=== PATIENT | male | born 1940 | race Caucasian/White ===

== ENCOUNTER 2016-04-21 16:33 | Inpatient (IN) | payer MEDICARE, BC ==
[~2016-04-21] VITALS: Ht 180.3 cm; Wt 90.0 kg
[~2016-04-21 16:33] MED LIST: ALDACTONE 25MG25 M1; ALDACTONE 25MG25 MG PO; ALDACTONE25 MG PO; ALTACE 10MG TAB10 MG PO; ALTACE 5MG5 MG PO; ALTACE10 MG PO; ALTACE5 M1 PO; ASPIRIN 81M81 MG/TA2 PO; BYSTOLIC5 MG PO; CEPHALEXIN500 M1 PO; COMBIVENT INH14.7 GM IH; CORDARONE200 MG/TAB PO; COREG 6.256.25 MG/TA PO; COREG3.125 MG PO; COREG6.25 MG PO; DOXYCYCLINE 10100 MG PO; DULERA1 ARO IH; ELIQUIS 5MG PO; FORADIL AERO0.012 MG IH; HCTZ 25MG TAB25 MG PO; IPRATROPIUM BROM3 M1 IH; KLOR-CON 1010 MEQ PO; LASIX40 MG PO; LEVAQUIN 750MG750 M1 PO; LIPITOR 10MG10 MG PO; LIPITOR20 MG PO; MUCINEX 60600 MG/TA1 PO; NORCO 325 MG-51 TAB PO; PERFOROMIS20 MCG/2 M IH; PREDNISONE20 MG PO; PROVENTIL0.09 MG/A1 IH; PROVENTIL0.09 MG/Ac IH; PULMICORT R1 MG/2 ML IH; RT SPIRIVA18 MCG IH; SEPTRA DS 8001 TAB PO; SPIRIVA HANDIH18 MCG IH; SPIRIVA18 MCG IH; ST. JOSEPH81 M2 PO
[2016-04-21 17:10] LABS: BASO % 0.3 % (0.0-2.0); EOS % 0.5 % (0-4.0); GRAN # 4.9 (1.4-6.5); GRAN % 79.9 % (42.2-75.2); LYMPH # 0.7 (1.2-3.4); LYMPH % 11.4 % (20.0-51.0); MEAN CELL VOLUME 86 fl (80.0-100.0); MEAN CORPUSCULAR HGB CONC 31 g/dl (33.0-37.0); MEAN PLATELET VOLUME 8.9 fl (7.4-10.4); MONO # 0.4 (0.1-0.6); MONO % 7.2 % (1.7-9.3); PLATELET COUNT 232 K/mm3 (130-400); RED BLOOD COUNT 2.78 M/mm3 (4.20-5.60); REDCELL DISTRIBUTION WIDTH-CV 14.6 % (11.5-14.5); WHITE BLOOD COUNT 6.2 K/mm3 (4.8-10.8)
[2016-04-21 17:16] LABS: INR 1.5 (0.8-3.0); PROTHROMBIN TIME 17.2 SECONDS (9.7-12.8)
[2016-04-21 17:19] LABS: HEMATOCRIT 23.9 % (42.0-52.0); HEMOGLOBIN 7.4 g/dl (13.5-18.0); MEAN CORPUSCULAR HEMOGLOBIN 27 pg (27.0-31.0); PARTIAL THROMBOPLASTIN TIME 31.2 SECONDS (26.0-37.0)
[2016-04-21] MEDS ORDERED: LEVAQUIN 5500 MG/TA1 PO (17:21)
[2016-04-21 17:25] LABS: ADJUSTED CALCIUM 10.1 mg/dL (8.4-10.2); ALANINE AMINOTRANSFERASE 24 U/L (21-72); ALBUMIN 2.4 gm/dL (3.5-5.0); ALKALINE PHOSPHATASE 71 U/L (50-136); ANION GAP 11 mmol/L (7-16); BILIRUBIN,TOTAL 0.4 mg/dL (0.0-1.0); BLOOD UREA NITROGEN 15 mg/dL (9-20); CALCIUM 8.8 mg/dL (8.4-10.2); CARBON DIOXIDE 28 mmol/L (22-30); CHLORIDE 101 mmol/L (98-107); CREATININE, serum 1.27 mg/dL (0.66-1.25); GLUCOSE 121 mg/dL (74-106); SODIUM 139 mmol/L (137-145); TOTAL PROTEIN 5.7 gm/dL (6.4-8.2)
[2016-04-21 17:27] LABS: LIPASE < 10 U/L (23-300); POTASSIUM 2.8 mmol/L (3.4-5.0)
[2016-04-21 17:34] LABS: B-TYPE NATRIURETIC PEPTIDE 4630 pg/mL (0-450)
[2016-04-21 17:38] LABS: TROPONIN-I < 0.012 ng/mL (0.000-0.034)
[2016-04-21 17:53] LABS: MAGNESIUM 2.3 mg/dL (1.6-2.3)
[2016-04-21 18:11] LABS: C-REACTIVE PROTEIN 21.8 mg/dL (0.0-0.9)
[2016-04-21 19:52] VITALS: BP 102/52; PULSE 82; TEMP 97.8
[2016-04-21 22:48] VITALS: BP 105/53; PULSE 75; TEMP 97.7
[2016-04-21 23:00] VITALS: BP 99/50; PULSE 77; TEMP 97.7
[2016-04-21 23:28] VITALS: BP 99/42; PULSE 72; TEMP 97.6
[2016-04-21 23:50] VITALS: BP 113/63; PULSE 64; TEMP 97.6
[2016-04-22] VITALS (15 sets, daily range): BP systolic 72–106; BP diastolic 34–66; PULSE 79–106; TEMP 97.3–98.4
[2016-04-22 00:54] LABS: PH 5 (5-8); SQUAMOUS EPITHELIAL 0-2 /hpf; URINE APPEARANCE Clear; URINE BACTERIA None Seen /hpf; URINE BILIRUBIN Negative (NEGATIVE); URINE BLOOD Negative (NEGATIVE); URINE COLOR Yellow; URINE GLUCOSE Negative (NEGATIVE); URINE KETONE Negative (NEGATIVE); URINE RBC 0-2 /hpf; URINE UROBILINOGEN Negative (NEGATIVE); URINE WBC 0-2 /hpf
[2016-04-22 07:20] LABS: BASO % 0.1 % (0.0-2.0); EOS % 0.3 % (0-4.0); GRAN # 5.9 (1.4-6.5); GRAN % 81.7 % (42.2-75.2); LYMPH # 0.7 (1.2-3.4); LYMPH % 9.3 % (20.0-51.0); MEAN CELL VOLUME 86 fl (80.0-100.0); MEAN CORPUSCULAR HGB CONC 31 g/dl (33.0-37.0); MEAN PLATELET VOLUME 9.1 fl (7.4-10.4); MONO # 0.6 (0.1-0.6); MONO % 7.9 % (1.7-9.3); PLATELET COUNT 250 K/mm3 (130-400); RED BLOOD COUNT 2.98 M/mm3 (4.20-5.60); REDCELL DISTRIBUTION WIDTH-CV 14.9 % (11.5-14.5); WHITE BLOOD COUNT 7.2 K/mm3 (4.8-10.8)
[2016-04-22 07:24] LABS: HEMATOCRIT 25.5 % (42.0-52.0); HEMOGLOBIN 7.8 g/dl (13.5-18.0); MEAN CORPUSCULAR HEMOGLOBIN 26 pg (27.0-31.0)
[2016-04-22 07:27] LABS: CALCIUM 8.8 mg/dL (8.4-10.2); CREATININE, serum 1.12 mg/dL (0.66-1.25); POTASSIUM 3.2 mmol/L (3.4-5.0)
[2016-04-23] VITALS (14 sets, daily range): BP systolic 72–107; BP diastolic 31–87; PULSE 78–96; TEMP 97.7–99.2
[2016-04-23 06:43] LABS: INR 1.7 (0.8-3.0); PROTHROMBIN TIME 19.1 SECONDS (9.7-12.8)
[2016-04-23 06:50] LABS: CALCIUM 8.5 mg/dL (8.4-10.2); CREATININE, serum 1.24 mg/dL (0.66-1.25); MAGNESIUM 2.1 mg/dL (1.6-2.3); POTASSIUM 3.5 mmol/L (3.4-5.0)
[2016-04-23 07:01] LABS: TROPONIN-I 0.02 ng/mL (0.000-0.034)
[2016-04-23 07:09] LABS: HEMATOCRIT 23.3 % (42.0-52.0); HEMOGLOBIN 7.5 g/dl (13.5-18.0)
[2016-04-23 19:41] LABS: HEMATOCRIT 23.9 % (42.0-52.0); HEMOGLOBIN 7.8 g/dl (13.5-18.0)
[2016-04-24] VITALS (14 sets, daily range): BP systolic 82–123; BP diastolic 33–71; PULSE 70–100; TEMP 97.4–98.2
[2016-04-24 06:50] LABS: MEAN CELL VOLUME 87 fl (80.0-100.0); MEAN CORPUSCULAR HGB CONC 32 g/dl (33.0-37.0); MEAN PLATELET VOLUME 8.8 fl (7.4-10.4); PLATELET COUNT 180 K/mm3 (130-400); RED BLOOD COUNT 2.71 M/mm3 (4.20-5.60); WHITE BLOOD COUNT 5.9 K/mm3 (4.8-10.8)
[2016-04-24 06:56] LABS: INR 1.7 (0.8-3.0); PROTHROMBIN TIME 18.8 SECONDS (9.7-12.8)
[2016-04-24 06:58] LABS: HEMATOCRIT 23.5 % (42.0-52.0); HEMOGLOBIN 7.4 g/dl (13.5-18.0); MEAN CORPUSCULAR HEMOGLOBIN 27 pg (27.0-31.0)
[2016-04-24 06:59] LABS: ADD PATHOLOGY DIFF REVIEW NO
[2016-04-24 07:06] LABS: ADJUSTED CALCIUM 10.1 mg/dL (8.4-10.2); ALBUMIN 1.9 gm/dL (3.5-5.0); BILIRUBIN,TOTAL 0.6 mg/dL (0.0-1.0); CALCIUM 8.4 mg/dL (8.4-10.2); CREATININE, serum 1.16 mg/dL (0.66-1.25); POTASSIUM 3.2 mmol/L (3.4-5.0); TOTAL PROTEIN 4.7 gm/dL (6.4-8.2)
[2016-04-24 07:13] LABS: BAND 11 % (0-10); EOSINOPHIL 1 % (0-4); METAMYELOCYTE 1 % (0-0); MYELOCYTE 2 % (0-0); NEUTROPHILS 76 % (42.0-75.2); PLATELET ESTIMATE NORMAL (NORMAL); TOTAL CELLS COUNTED 100
[2016-04-25 00:02] VITALS: BP 102/51; PULSE 72; TEMP 97.5
[2016-04-25 04:23] VITALS: BP 108/43; PULSE 68; TEMP 97.7
[2016-04-25 07:39] VITALS: BP 115/51; PULSE 73; TEMP 97.7
[2016-04-25 08:26] LABS: MEAN CELL VOLUME 87 fl (80.0-100.0); MEAN CORPUSCULAR HGB CONC 32 g/dl (33.0-37.0); MEAN PLATELET VOLUME 9.1 fl (7.4-10.4); PLATELET COUNT 155 K/mm3 (130-400); RED BLOOD COUNT 2.76 M/mm3 (4.20-5.60); REDCELL DISTRIBUTION WIDTH-CV 15.1 % (11.5-14.5); WHITE BLOOD COUNT 5.3 K/mm3 (4.8-10.8)
[2016-04-25 08:27] LABS: ADD PATHOLOGY DIFF REVIEW NO; HEMOGLOBIN 7.6 g/dl (13.5-18.0); MEAN CORPUSCULAR HEMOGLOBIN 28 pg (27.0-31.0)
[2016-04-25 08:38] LABS: CALCIUM 8.2 mg/dL (8.4-10.2); CREATININE, serum 0.95 mg/dL (0.66-1.25); POTASSIUM 3.7 mmol/L (3.4-5.0)
[2016-04-25 11:15] LABS: BAND 5 % (0-10); EOSINOPHIL 1 % (0-4); NEUTROPHILS 85 % (42.0-75.2); TOTAL CELLS COUNTED 100
[2016-04-25 11:16] LABS: HYPOCHROMIA 1+
[2016-04-25 11:57] VITALS: BP 113/49; PULSE 72; TEMP 97.8
[2016-04-25 15:20] VITALS: BP 106/48; PULSE 74; TEMP 97.5
[2016-04-25 20:38] VITALS: BP 104/42; PULSE 77; TEMP 97
[2016-04-26] VITALS (7 sets, daily range): BP systolic 98–114; BP diastolic 45–54; PULSE 63–74; TEMP 97.5–98.1
[2016-04-26 07:52] LABS: BASO % 0.4 % (0.0-2.0); EOS # 0.1 (0.0-0.7); EOS % 2.6 % (0-4.0); GRAN % 73.5 % (42.2-75.2); LYMPH # 0.7 (1.2-3.4); LYMPH % 13.8 % (20.0-51.0); MEAN CELL VOLUME 88 fl (80.0-100.0); MEAN CORPUSCULAR HGB CONC 31 g/dl (33.0-37.0); MEAN PLATELET VOLUME 8.8 fl (7.4-10.4); MONO # 0.3 (0.1-0.6); PLATELET COUNT 160 K/mm3 (130-400); RED BLOOD COUNT 2.76 M/mm3 (4.20-5.60); REDCELL DISTRIBUTION WIDTH-CV 15.2 % (11.5-14.5); WHITE BLOOD COUNT 5.4 K/mm3 (4.8-10.8)
[2016-04-26 07:54] LABS: HEMATOCRIT 24.3 % (42.0-52.0); HEMOGLOBIN 7.6 g/dl (13.5-18.0); MEAN CORPUSCULAR HEMOGLOBIN 28 pg (27.0-31.0)
[2016-04-26 08:09] LABS: CALCIUM 8.2 mg/dL (8.4-10.2); CREATININE, serum 0.91 mg/dL (0.66-1.25); POTASSIUM 3.8 mmol/L (3.4-5.0)
[2016-04-27] VITALS (7 sets, daily range): BP systolic 97–112; BP diastolic 43–53; PULSE 67–81; TEMP 97.5–98.6
[2016-04-27 06:31] LABS: MEAN CELL VOLUME 88 fl (80.0-100.0); MEAN CORPUSCULAR HGB CONC 31 g/dl (33.0-37.0); PLATELET COUNT 150 K/mm3 (130-400); RED BLOOD COUNT 2.84 M/mm3 (4.20-5.60); WHITE BLOOD COUNT 5.1 K/mm3 (4.8-10.8)
[2016-04-27 06:37] LABS: HEMATOCRIT 25.1 % (42.0-52.0); HEMOGLOBIN 7.8 g/dl (13.5-18.0); MEAN CORPUSCULAR HEMOGLOBIN 27 pg (27.0-31.0)
[2016-04-27 06:38] LABS: ADD PATHOLOGY DIFF REVIEW NO
[2016-04-27 06:49] LABS: CALCIUM 8.1 mg/dL (8.4-10.2); CREATININE, serum 0.83 mg/dL (0.66-1.25); POTASSIUM 3.8 mmol/L (3.4-5.0)
[2016-04-27 07:28] LABS: BAND 8 % (0-10); EOSINOPHIL 1 % (0-4); HYPOCHROMIA 1+; METAMYELOCYTE 2 % (0-0); MYELOCYTE 1 % (0-0); NEUTROPHILS 67 % (42.0-75.2); PLATELET ESTIMATE NORMAL (NORMAL); TOTAL CELLS COUNTED 100
[2016-04-28 03:49] VITALS: BP 104/49; PULSE 79; TEMP 98.1
[2016-04-28 07:28] LABS: C-REACTIVE PROTEIN 6.6 mg/dL (0.0-0.9)
[2016-04-28 07:29] LABS: MEAN CELL VOLUME 88 fl (80.0-100.0); MEAN CORPUSCULAR HGB CONC 31 g/dl (33.0-37.0); MEAN PLATELET VOLUME 9.2 fl (7.4-10.4); PLATELET COUNT 145 K/mm3 (130-400); RED BLOOD COUNT 2.74 M/mm3 (4.20-5.60); REDCELL DISTRIBUTION WIDTH-CV 15.1 % (11.5-14.5); WHITE BLOOD COUNT 5.7 K/mm3 (4.8-10.8)
[2016-04-28 07:33] LABS: HEMOGLOBIN 7.5 g/dl (13.5-18.0); MEAN CORPUSCULAR HEMOGLOBIN 27 pg (27.0-31.0)
[2016-04-28 07:34] LABS: ADD PATHOLOGY DIFF REVIEW NO
[2016-04-28 07:52] VITALS: BP 130/57; PULSE 78; TEMP 97
[2016-04-28 08:06] LABS: BAND 7 % (0-10); EOSINOPHIL 2 % (0-4); HYPOCHROMIA 2+; MYELOCYTE 1 % (0-0); NEUTROPHILS 74 % (42.0-75.2); PLATELET ESTIMATE NORMAL (NORMAL); TOTAL CELLS COUNTED 100
[2016-04-28] MEDS ORDERED: PROTONIX 40MG T40 MG PO (09:49)
[2016-04-28] MEDS ORDERED: NORCO 325 MG-51 TAB PO (09:50)
[2016-04-28 12:24] VITALS: BP 104/58; PULSE 86; TEMP 97.4
[2016-04-28 16:35] VITALS: BP 99/77; PULSE 78; TEMP 98.5
[2016-04-28 20:03] VITALS: BP 104/47; PULSE 76; TEMP 98
[2016-04-29 00:15] VITALS: BP 121/63; PULSE 76; TEMP 98.2
[2016-04-29 04:13] VITALS: BP 123/66; PULSE 79; TEMP 97.5
[2016-04-29 08:42] VITALS: BP 114/54; PULSE 81; TEMP 98.1
[2016-04-29 11:32] VITALS: BP 122/59; PULSE 82; TEMP 98.2
== END 2016-04-29 16:15 | disposition home health service (06) | DRG 186 ==
LOC: COL.ER 16:33 → MEDICAL 19:08
PROVIDERS: Emergency Medicine; Internal Medicine; Internal Medicine Pulmonary Disease; Nurse Practitioner Family; Physician Assistant; Surgery
PROC: 0W9900Z Drainage of Right Pleural Cavity with Drainage Device, Open Approach (ICD-10-PCS; principal; 2016-04-23 09:30)
PROC: 0DB68ZX Excision of Stomach, Via Natural or Artificial Opening Endoscopic, Diagnostic (ICD-10-PCS; 2016-04-24)
DX: J90 Pleural effusion, not elsewhere classified (principal); J86.9 Pyothorax without fistula; K25.4 Chronic or unspecified gastric ulcer with hemorrhage; N17.9 Acute kidney failure, unspecified; E44.0 Moderate protein-calorie malnutrition; C34.31 Malignant neoplasm of lower lobe, right bronchus or lung; J98.11 Atelectasis; D62 Acute posthemorrhagic anemia; I50.32 Chronic diastolic (congestive) heart failure; E87.6 Hypokalemia; I11.0 Hypertensive heart disease with heart failure; J44.9 Chronic obstructive pulmonary disease, unspecified; Z87.891 Personal history of nicotine dependence; I48.0 Paroxysmal atrial fibrillation; Z79.01 Long term (current) use of anticoagulants
CPT/HCPCS: 99222-AI; 99232-AI; 99239; A7048; A9284; C1751; C9113; J1644; J1940; J1956; J2250; J2543; J2704; J3480; J7030; J7050; P9016; Q9967

== ENCOUNTER → 2016-05-18 | Outpatient (CLI) | payer MEDICARE, BC ==
[~2016-05-18] VITALS: Ht 180.3 cm; Wt 81.8 kg
[2016-05-18] VITALS (12 sets, daily range): BP systolic 123–172; BP diastolic 71–101; PULSE 75–101
[~2016-05-18] MED LIST changes: +ALDACTONE 25MG25 M1 PO; +BROVANA15 MCG/2 M IH; +COMPAZINE 110 MG/TAB PO; +DECADRON 4MG TAB4 MG PO; +FOLIC ACID 11 MG/TA1 PO; +LEVAQUIN 5500 MG/TA1 PO; +MULTI VITAMINS1 TAB PO; +PACERONE400 MG PO; +PROTONIX 40MG T40 MG PO; +VITAMIN D1000 IU PO
== END ==
LOC: COL.RAD 12:18
DX: M89.8X6 Other specified disorders of bone, lower leg (principal); C34.2 Malignant neoplasm of middle lobe, bronchus or lung
CPT/HCPCS: J2250; J3010

== ENCOUNTER 2016-05-22 12:56 | Outpatient (CLI) | payer MEDICARE, BC ==
[~2016-05-22] VITALS: Ht 180.3 cm; Wt 78.6 kg
[~2016-05-22 12:56] MED LIST changes: -ALDACTONE 25MG25 M1 PO; -BROVANA15 MCG/2 M IH; -COMPAZINE 110 MG/TAB PO; -DECADRON 4MG TAB4 MG PO; -FOLIC ACID 11 MG/TA1 PO; -MULTI VITAMINS1 TAB PO; -PACERONE400 MG PO; -VITAMIN D1000 IU PO
[2016-05-22 13:39] VITALS: BP 113/67; PULSE 92; TEMP 98.6
[2016-05-22 14:11] LABS: MEAN CELL VOLUME 84 fl (80.0-100.0); MEAN CORPUSCULAR HGB CONC 31 g/dl (33.0-37.0); MEAN PLATELET VOLUME 8.9 fl (7.4-10.4); PLATELET COUNT 297 K/mm3 (130-400); RED BLOOD COUNT 3.34 M/mm3 (4.20-5.60); REDCELL DISTRIBUTION WIDTH-CV 15.1 % (11.5-14.5); WHITE BLOOD COUNT 6.8 K/mm3 (4.8-10.8)
[2016-05-22 14:12] LABS: INR 1.4 (0.8-3.0); PROTHROMBIN TIME 16.2 SECONDS (9.7-12.8)
[2016-05-22 14:17] LABS: HEMATOCRIT 28.2 % (42.0-52.0); HEMOGLOBIN 8.7 g/dl (13.5-18.0); MEAN CORPUSCULAR HEMOGLOBIN 26 pg (27.0-31.0)
[2016-05-22 15:10] VITALS: BP 116/74; PULSE 89
== END 2016-05-22 15:14 | disposition home or self-care (01) ==
LOC: EUO 12:56 → COL.RAD 13:00 → EUO 15:14
PROVIDERS: Internal Medicine Interventional Cardiology
DX: I48.91 Unspecified atrial fibrillation (principal); R94.31 Abnormal electrocardiogram [ECG] [EKG]
CPT/HCPCS: C1764

== ENCOUNTER 2016-06-12 07:04 | Day surgery (SDC) | payer MEDICARE, BC ==
[~2016-06-12] VITALS: Ht 180.3 cm; Wt 77.3 kg
[2016-06-12] MEDS ORDERED: FOLIC ACID 11 MG/TA1 PO (08:42)
[2016-06-12] MEDS ORDERED: DECADRON 4MG TAB4 MG PO (08:42)
[2016-06-12] MEDS ORDERED: COMPAZINE 110 MG/TAB PO (08:42)
[2016-06-12] MEDS ORDERED: MULTI VITAMINS1 TAB PO (08:43)
[2016-06-12] MEDS ORDERED: VITAMIN D1000 IU PO (08:43)
[2016-06-12 08:45] VITALS: BP 116/67; PULSE 103; TEMP 97.7
[2016-06-12 10:00] VITALS: BP 112/71; PULSE 103; TEMP 98.1
[2016-06-12 10:15] VITALS: BP 99/66; PULSE 103
[2016-06-12 10:30] VITALS: BP 102/69; PULSE 91
[2016-06-12 10:45] VITALS: BP 123/69; PULSE 93
[2016-06-12 11:00] VITALS: BP 115/60; PULSE 93
== END 2016-06-12 11:45 | disposition home or self-care (01) ==
LOC: SDCO 07:04
DX: C34.91 Malignant neoplasm of unspecified part of right bronchus or lung (principal); C79.51 Secondary malignant neoplasm of bone; J44.9 Chronic obstructive pulmonary disease, unspecified; I11.0 Hypertensive heart disease with heart failure; I50.9 Heart failure, unspecified; I48.91 Unspecified atrial fibrillation; Z99.81 Dependence on supplemental oxygen; Z79.82 Long term (current) use of aspirin; Z79.01 Long term (current) use of anticoagulants; Z87.891 Personal history of nicotine dependence
CPT/HCPCS: C1788; J0690; J1644; J2704; J7030

== ENCOUNTER 2016-06-19 09:27 | Inpatient (IN) | payer MEDICARE, BC ==
[2016-06-19] VITALS (203 sets, daily range): BP systolic 92–108; BP diastolic 64–75; PULSE 107–140; TEMP 97.8–98; O2SAT 67–100
[~2016-06-19] VITALS: Ht 180.3 cm; Wt 79.7 kg
[~2016-06-19 09:27] MED LIST changes: +COMPAZINE 110 MG/TAB PO; +DECADRON 4MG TAB4 MG PO; +FOLIC ACID 11 MG/TA1 PO; +MULTI VITAMINS1 TAB PO; +VITAMIN D1000 IU PO
[2016-06-19 10:12] LABS: MEAN CELL VOLUME 81 fl (80.0-100.0); MEAN CORPUSCULAR HGB CONC 32 g/dl (33.0-37.0); MEAN PLATELET VOLUME 10.7 fl (7.4-10.4); PLATELET COUNT 121 K/mm3 (130-400); RED BLOOD COUNT 3.09 M/mm3 (4.20-5.60); REDCELL DISTRIBUTION WIDTH-CV 15.1 % (11.5-14.5); WHITE BLOOD COUNT 2.8 K/mm3 (4.8-10.8)
[2016-06-19 10:26] LABS: INR 1.5 (0.8-3.0); PROTHROMBIN TIME 16.7 SECONDS (9.7-12.8)
[2016-06-19 10:29] LABS: ADJUSTED CALCIUM 9.3 mg/dL (8.4-10.2); ALBUMIN 2.5 gm/dL (3.5-5.0); BILIRUBIN,TOTAL 0.5 mg/dL (0.0-1.0); CALCIUM 8.1 mg/dL (8.4-10.2); MAGNESIUM 1.7 mg/dL (1.6-2.3); POTASSIUM 4.4 mmol/L (3.4-5.0); TOTAL PROTEIN 5.5 gm/dL (6.4-8.2)
[2016-06-19 10:42] LABS: HEMATOCRIT 25.1 % (42.0-52.0); MEAN CORPUSCULAR HEMOGLOBIN 26 pg (27.0-31.0); TROPONIN-I 0.019 ng/mL (0.000-0.034)
[2016-06-19] MEDS ORDERED: BROVANA15 MCG/2 M IH (10:42)
[2016-06-19] MEDS ORDERED: ALDACTONE 25MG25 M1 PO (10:53)
[2016-06-19] MEDS ORDERED: HCTZ 25MG TAB25 MG PO (10:54)
[2016-06-19] MEDS ORDERED: PACERONE400 MG PO (10:55)
[2016-06-19 11:00] LABS: BAND 23 % (0-10); EOSINOPHIL 1 % (0-4); METAMYELOCYTE 2 % (0-0); MYELOCYTE 4 % (0-0); NEUTROPHILS 51 % (42.0-75.2); TOTAL CELLS COUNTED 100
[2016-06-19 11:05] LABS: ADD PATHOLOGY DIFF REVIEW YES; ANISOCYTOSIS 1+; OVALOCYTES 1+; POLYCHROMASIA 1+
[2016-06-19 11:12] LABS: DOHLE BODIES PRESENT; TOXIC GRANULATION PRESENT
[2016-06-19 11:15] LABS: PLATELET ESTIMATE DECREASED (NORMAL)
[2016-06-20] VITALS (1081 sets, daily range): BP systolic 91–128; BP diastolic 65–95; PULSE 75–123; TEMP 97–98.3; O2SAT 61–100
[2016-06-20 00:22] LABS: PH 5 (5-8); SQUAMOUS EPITHELIAL 0-2 /hpf; URINE APPEARANCE Clear; URINE BACTERIA None Seen /hpf; URINE BILIRUBIN Negative (NEGATIVE); URINE BLOOD 1+ (NEGATIVE); URINE COLOR Yellow; URINE GLUCOSE Negative (NEGATIVE); URINE KETONE Negative (NEGATIVE)
[2016-06-20 05:21] LABS: MEAN CELL VOLUME 84 fl (80.0-100.0); MEAN CORPUSCULAR HGB CONC 31 g/dl (33.0-37.0); MEAN PLATELET VOLUME 10.5 fl (7.4-10.4); PLATELET COUNT 150 K/mm3 (130-400); RED BLOOD COUNT 2.77 M/mm3 (4.20-5.60); REDCELL DISTRIBUTION WIDTH-CV 15.4 % (11.5-14.5); WHITE BLOOD COUNT 2.2 K/mm3 (4.8-10.8)
[2016-06-20 05:24] LABS: INR 1.6 (0.8-3.0); PROTHROMBIN TIME 17.6 SECONDS (9.7-12.8)
[2016-06-20 05:31] LABS: ALBUMIN 2.3 gm/dL (3.5-5.0); BILIRUBIN,TOTAL 0.5 mg/dL (0.0-1.0); CALCIUM 7.6 mg/dL (8.4-10.2); CREATININE, serum 0.95 mg/dL (0.66-1.25); POTASSIUM 4.1 mmol/L (3.4-5.0); TOTAL PROTEIN 5.3 gm/dL (6.4-8.2)
[2016-06-20 05:51] LABS: HEMATOCRIT 23.3 % (42.0-52.0); HEMOGLOBIN 7.1 g/dl (13.5-18.0); MEAN CORPUSCULAR HEMOGLOBIN 26 pg (27.0-31.0)
[2016-06-20 07:21] LABS: ADD PATHOLOGY DIFF REVIEW NO
[2016-06-20 07:34] LABS: ANISOCYTOSIS 1+; BAND 24 % (0-10); HYPOCHROMIA 2+; METAMYELOCYTE 3 % (0-0); NEUTROPHILS 67 % (42.0-75.2); OVALOCYTES 1+; PLATELET ESTIMATE NORMAL (NORMAL); SCHISTOCYTES 1+; TOTAL CELLS COUNTED 100
[2016-06-20 18:03] LABS: PLEURAL FLUID - PMN 85.5 % (0-25)
[2016-06-20 18:06] LABS: PLEURAL FLUID RIGHT SIDE; PLEURAL FLUID APPEARANCE CLOUDY; PLEURAL FLUID COLOR AMBER
[2016-06-20 18:31] LABS: GLUCOSE,PLEURAL FLUID < 20 mg/dL
[2016-06-21] VITALS (953 sets, daily range): BP systolic 97–130; BP diastolic 46–87; PULSE 92–114; TEMP 97.8–98; O2SAT 66–100
[2016-06-21 05:28] LABS: MEAN CELL VOLUME 85 fl (80.0-100.0); MEAN CORPUSCULAR HGB CONC 31 g/dl (33.0-37.0); MEAN PLATELET VOLUME 10.3 fl (7.4-10.4); PLATELET COUNT 173 K/mm3 (130-400); RED BLOOD COUNT 2.97 M/mm3 (4.20-5.60); WHITE BLOOD COUNT 3.7 K/mm3 (4.8-10.8)
[2016-06-21 05:32] LABS: HEMATOCRIT 25.2 % (42.0-52.0); HEMOGLOBIN 7.8 g/dl (13.5-18.0); MEAN CORPUSCULAR HEMOGLOBIN 26 pg (27.0-31.0)
[2016-06-21 05:33] LABS: ADD PATHOLOGY DIFF REVIEW NO
[2016-06-21 05:43] LABS: ALBUMIN 2.3 gm/dL (3.5-5.0); BILIRUBIN,TOTAL 0.5 mg/dL (0.0-1.0); CALCIUM 7.6 mg/dL (8.4-10.2); CREATININE, serum 0.9 mg/dL (0.66-1.25); POTASSIUM 3.9 mmol/L (3.4-5.0); TOTAL PROTEIN 5.2 gm/dL (6.4-8.2)
[2016-06-21 05:49] LABS: INR 1.5 (0.8-3.0); PROTHROMBIN TIME 17.3 SECONDS (9.7-12.8)
[2016-06-21 06:18] LABS: BAND 20 % (0-10); METAMYELOCYTE 1 % (0-0); NEUTROPHILS 71 % (42.0-75.2); TOTAL CELLS COUNTED 100
[2016-06-22 02:01] VITALS: BP 121/75; PULSE 96; TEMP 99
[2016-06-22 05:03] VITALS: BP 135/64; PULSE 81; TEMP 98.1
[2016-06-22 07:05] LABS: MEAN CELL VOLUME 87 fl (80.0-100.0); MEAN CORPUSCULAR HGB CONC 31 g/dl (33.0-37.0); MEAN PLATELET VOLUME 9.7 fl (7.4-10.4); PLATELET COUNT 252 K/mm3 (130-400); RED BLOOD COUNT 3.03 M/mm3 (4.20-5.60); REDCELL DISTRIBUTION WIDTH-CV 16.8 % (11.5-14.5); WHITE BLOOD COUNT 6.7 K/mm3 (4.8-10.8)
[2016-06-22 07:09] LABS: ADD PATHOLOGY DIFF REVIEW NO; HEMATOCRIT 26.2 % (42.0-52.0); HEMOGLOBIN 8.1 g/dl (13.5-18.0); MEAN CORPUSCULAR HEMOGLOBIN 27 pg (27.0-31.0)
[2016-06-22 07:09] LABS: INR 1.6 (0.8-3.0); PROTHROMBIN TIME 17.7 SECONDS (9.7-12.8)
[2016-06-22 07:19] LABS: ADJUSTED CALCIUM 8.8 mg/dL (8.4-10.2); ALBUMIN 2.3 gm/dL (3.5-5.0); BILIRUBIN,TOTAL 0.5 mg/dL (0.0-1.0); CALCIUM 7.4 mg/dL (8.4-10.2); CREATININE, serum 0.86 mg/dL (0.66-1.25); MAGNESIUM 1.7 mg/dL (1.6-2.3); PHOSPHOROUS 2.5 mg/dL (2.5-4.5); POTASSIUM 4.1 mmol/L (3.4-5.0); TOTAL PROTEIN 5.2 gm/dL (6.4-8.2)
[2016-06-22 07:40] LABS: ANISOCYTOSIS 1+; BAND 22 % (0-10); HYPOCHROMIA 1+; METAMYELOCYTE 4 % (0-0); MYELOCYTE 2 % (0-0); NEUTROPHILS 60 % (42.0-75.2); PLATELET ESTIMATE NORMAL (NORMAL); TOTAL CELLS COUNTED 100
[2016-06-22 10:45] VITALS: BP 118/66; PULSE 96; TEMP 97.5
[2016-06-22 14:07] VITALS: BP 139/70; PULSE 78; TEMP 99.3
[2016-06-22 18:44] VITALS: BP 113/81; PULSE 86; TEMP 98.4
[2016-06-22 21:47] VITALS: BP 136/75; PULSE 65; TEMP 97.1
[2016-06-23] VITALS (117 sets, daily range): BP systolic 113; BP diastolic 77; PULSE 77; TEMP 97.8; O2SAT 77–100
[2016-06-23 05:06] LABS: ARTERIAL BLD GAS O2 SATURATION 98.8 % (92-100); ARTERIAL BLD GAS TCO2 CT 14.5; ARTERIAL BLOOD GAS BASE EXCESS -17.6 (-2-2); ARTERIAL BLOOD GAS HCO3 12.9 meq/L (22-26); OXYHEMOGLOBIN 98.1 %
[2016-06-23 05:07] LABS: ARTERIAL BLOOD GAS PHT 7.01 C (7.35-7.45); ARTERIAL BLOOD GAS PO2 265.8 mmHg (80-100); ARTERIAL BLOOD GAS PO2T 265.8 (80-100); ARTERIAL BLOOD GAS pH 7.01 (7.35-7.45); ATS? YES
[2016-06-23 05:08] LABS: ALLEN TEST NO
[2016-06-23 05:35] LABS: MEAN CELL VOLUME 89 fl (80.0-100.0); MEAN CORPUSCULAR HGB CONC 30 g/dl (33.0-37.0); MEAN PLATELET VOLUME 9.8 fl (7.4-10.4); RED BLOOD COUNT 3.18 M/mm3 (4.20-5.60); REDCELL DISTRIBUTION WIDTH-CV 17.9 % (11.5-14.5)
[2016-06-23 05:39] LABS: ADD PATHOLOGY DIFF REVIEW NO; HEMATOCRIT 28.4 % (42.0-52.0); HEMOGLOBIN 8.6 g/dl (13.5-18.0); MEAN CORPUSCULAR HEMOGLOBIN 27 pg (27.0-31.0); WHITE BLOOD COUNT 25.1 K/mm3 (4.8-10.8)
[2016-06-23 05:45] LABS: INR 1.6 (0.8-3.0); PROTHROMBIN TIME 17.5 SECONDS (9.7-12.8)
[2016-06-23 05:47] LABS: ALBUMIN 2.3 gm/dL (3.5-5.0); BILIRUBIN,TOTAL 0.4 mg/dL (0.0-1.0); C-REACTIVE PROTEIN 4.7 mg/dL (0.0-0.9); CALCIUM 7.6 mg/dL (8.4-10.2); CREATININE, serum 1.01 mg/dL (0.66-1.25); POTASSIUM 4.4 mmol/L (3.4-5.0)
[2016-06-23 06:28] LABS: TROPONIN-I 0.053 ng/mL (0.000-0.034)
[2016-06-23 07:01] LABS: BAND 19 % (0-10); BASOPHIL 1 % (0-2); METAMYELOCYTE 6 % (0-0); MYELOCYTE 10 % (0-0); NEUTROPHILS 43 % (42.0-75.2)
[2016-06-23 07:02] LABS: PLATELET COUNT 560 K/mm3 (130-400); TOTAL CELLS COUNTED 200
[2016-06-23 07:04] LABS: ANISOCYTOSIS 2+; PLATELET ESTIMATE INCREASED (NORMAL); POLYCHROMASIA 1+
== END 2016-06-23 16:54 | disposition expired | DRG 308 ==
LOC: COL.ER 09:27 → ICU 12:15 → SURG 06-21 20:28 → ICU 06-23 05:19 → PEDS 06-23 10:49
PROVIDERS: Emergency Medicine; Family Medicine; Internal Medicine; Internal Medicine Pulmonary Disease
PROC: 0W9900Z Drainage of Right Pleural Cavity with Drainage Device, Open Approach (ICD-10-PCS; principal; 2016-06-20)
PROC: 0W993ZX Drainage of Right Pleural Cavity, Percutaneous Approach, Diagnostic (ICD-10-PCS; 2016-06-20)
DX: I48.91 Unspecified atrial fibrillation (principal); J86.9 Pyothorax without fistula; D61.810 Antineoplastic chemotherapy induced pancytopenia; J91.0 Malignant pleural effusion; C34.91 Malignant neoplasm of unspecified part of right bronchus or lung; Z51.5 Encounter for palliative care; R09.2 Respiratory arrest; I25.2 Old myocardial infarction; R19.7 Diarrhea, unspecified; L89.152 Pressure ulcer of sacral region, stage 2; I95.9 Hypotension, unspecified; D64.9 Anemia, unspecified; Z79.2 Long term (current) use of antibiotics; Z87.891 Personal history of nicotine dependence
CPT/HCPCS: 99223-AI; 99233-AI; 99239; A7048; J0282; J0713; J1720; J1956; J2060; J2270; J2543; J3370; J7030; J7050; J7060; P9016; Q9967